=== PATIENT | female | born 1960 | race Caucasian/White ===

== ENCOUNTER → 2016-04-24 | Outpatient (CLI) | payer OTHER | END | disposition home or self-care (01) | LOC: LABWHC1 14:20 | PROVIDERS: ATTEND Surgery | DX: Z00.5 Encounter for examination of potential donor of organ and tissue (principal); Z52.4 Kidney donor | CPT/HCPCS: 86900; 86901 ==

== ENCOUNTER → 2016-09-02 | Outpatient (CLI) | payer OTHER ==
[2016-09-02 10:51] LABS: Basophils # (A) 0.1 k/uL (0-0.2); Basophils % (A) 1 %; CH 30.3; CHCM 33.1; Eosinophils # (A) 0.3 k/uL (0-0.7); Eosinophils % (A) 5 %; HCT 43.5 % (34.0-46.0); HDW 2.39; HGB 14.3 gm/dL (11.4-16.0); Luc # (Auto) 0.09; Luc % (Auto) 2; Lymphocytes # (A) 1.6 k/uL (1.0-4.8); Lymphocytes % (A) 27 %; MCH 30.3 pg (25.0-35.0); MCV 92.1 fL (80.0-100.0); Monocytes # (A) 0.3 k/uL (0-1.0); Monocytes % (A) 5 %; Neutrophils # (A) 3.7 k/uL (1.3-7.7); Neutrophils % (A) 61 %; RBC 4.73 m/uL (3.80-5.40); RDW 13.7 % (11.5-15.5); WBC 6.1 k/uL (3.8-10.6); WBC (Perox) 5.84
[2016-09-02 10:53] LABS: ALT 39 U/L (9-52); AST 27 U/L (14-36); Alkaline Phosphatase 88 U/L (38-126); Anion Gap 12 mmol/L; Bilirubin, Delta 0.3 mg/dL (0.0-0.2); Blood Urea Nitrogen 17 mg/dL (7-17); Calcium 9.9 mg/dL (8.4-10.2); Carbon Dioxide 27 mmol/L (22-30); Chloride 104 mmol/L (98-107); Cholesterol 207 mg/dL (<200); GGT 62 U/L (12-43); Glucose 91 mg/dL (74-99); HDL Cholesterol 46 mg/dL (40-60); LDH 455 U/L (313-618); Non-African American GFR(MDRD) >60 (>60 ml/min/1.73 sqM); Phosphorous 3.8 mg/dL (2.5-4.5); Potassium 4.5 mmol/L (3.5-5.1); Sodium 143 mmol/L (137-145); Total Bilirubin 0.6 mg/dL (0.2-1.3); Total Protein 7.8 g/dL (6.3-8.2); Triglycerides 197 mg/dL (<150)
[2016-09-02 10:56] LABS: INR 0.9 (<1.1); Partial Thromboplastin Time 23.2 sec (22.0-30.0); Prothrombin Time 9.5 sec (9.0-12.0)
[2016-09-02 11:03] LABS: Appearance,Urine Clear (Clear); Bilirubin,Urine Negative (Negative); Glucose,Urine (UA) Negative (Negative); Ketones,Urine Negative (Negative); Leukocyte Esterase,Urine Negative (Negative); Nitrite,Urine Negative (Negative); Protein,Urine Negative (Negative); Specific Gravity,Urine 1.002 (1.001-1.035); UA Billing (MACRO vs. MICRO) CHEM; Urobilinogen,Urine <2.0 mg/dL (<2.0)
[2016-09-02 11:23] LABS: Hepatitis B Surface Ag Index 0.07
[2016-09-02 11:28] LABS: Hepatitis B Core IgM Index 0.03
[2016-09-02 11:41] LABS: Hepatitis B Surface Antibody POSITIVE (Negative); Hepatitis C Virus IgG Ab Negative (Negative); Hepatitis C Virus IgG Index 0.05
[2016-09-02 14:34] LABS: Hemoglobin A1C 5.7 % (4.2-6.1)
[2016-09-02 15:09] LABS: Urine Creatinine 11.4 mg/dL
[2016-09-02 15:47] LABS: Treponemal Ab Non-Reactive (Non-Reactive)
[2016-09-03 04:34] LABS: EBV - EA (IgG) <5.0 U/mL (<9.0); EBV - EBNA (IgG) 5.8 U/mL (<18.0); EBV - VCA (IgG) >750.0 U/mL (<18.0); EBV - VCA IgM <10.0 U/mL (<36.0)
[2016-09-03 14:35] LABS: Hepatits C Virus RNA, Quant <12 IU/mL (<12); LOG HCV IU/mL <1.08 (<1.08)
[2016-09-05 14:01] LABS: West Nile Virus IgM Antibody 0.01 INDEX (<0.90)
== END | disposition home or self-care (01) ==
LOC: LABWHC1 08:41
PROVIDERS: ATTEND Surgery
DX: Z52.4 Kidney donor (principal)
CPT/HCPCS: 36415; 80053; 80061; 81003; 82043; 82248; 82570; 82575; 82977; 83036; 83615; 84100; 84156; 85025; 85610; 85730; 86480; 86644; 86663; 86664; 86665; 86704; 86705; 86706; 86780; 86788; 86789; 86803; 87086; 87340; 87390; 87522

== ENCOUNTER → 2016-09-03 | Outpatient (CLI) | payer OTHER ==
--- NOTE | 2016-09-03 16:04 | XR ---
EXAMINATION TYPE: XR chest 2V DATE OF EXAM: 09/03/2016 COMPARISON: None HISTORY: 55-year-old female screening for cardiovascular disease TECHNIQUE: Frontal and lateral views FINDINGS: The cardiomediastinal silhouette, aorta, and pulmonary vasculature are within normal limits. There is mild interstitial prominence which has a chronic appearance. Lungs and pleural spaces are otherwise clear. IMPRESSION: No acute cardiopulmonary process.
== END | disposition home or self-care (01) ==
LOC: RADXRMAIN 15:42
PROVIDERS: ATTEND Surgery
DX: Z13.6 Encounter for screening for cardiovascular disorders (principal)
CPT/HCPCS: 71020; 93005

== ENCOUNTER → 2017-02-03 | Outpatient (CLI) | payer BC ==
--- NOTE | 2017-02-03 09:06 | XR ---
EXAMINATION TYPE: XR Hip Complete RT DATE OF EXAM: 02/03/2017 COMPARISON: NONE HISTORY: Pain TECHNIQUE: 2 view right hip FINDINGS: Right hip is examined in AP and lateral projections Femoral head articulates with the acetabulum. Joint spaces preserved. No acute fractures are evident. Some degenerative change may be at the sacroiliac joint on the right. IMPRESSION: 1. No acute osseous abnormality.
--- NOTE | 2017-02-03 09:07 | XR ---
EXAMINATION TYPE: XR lumbosacral spine min 4V DATE OF EXAM: 02/03/2017 COMPARISON: NONE HISTORY: Right leg pain TECHNIQUE: Five-view lumbar spine FINDINGS: Lumbar spine is examined in 5 views. Disc height and vertebral body heights are preserved. Alignment is normal. Facets are unremarkable. There 5 lumbar-type vertebral bodies. The pedicles are intact. IMPRESSION: 1. Normal 5 view lumbar spine
--- NOTE | 2017-02-04 09:59 | MM ---
Reason for exam: screening (asymptomatic). Last mammogram was performed 3 years and 3 months ago. History: Family history of breast cancer in mother at age 51. Physical Findings: A clinical breast exam by your physician is recommended on an annual basis and results should be correlated with mammographic findings. MG Screening Mammo w CAD Bilateral CC and MLO view(s) were taken. Prior study comparison: April 11, 2015, mammogram, performed at [facility]. October 29, 2013, left breast MG work up mamm w CAD LT. October 21, 2013, bilateral MG screening mammo w CAD. The breast tissue is extremely dense which could obscure a lesion on mammography. Finding: There is a 7 mm obscured oval mass in the middle, central position of the left breast. Focal asymmetry 8mm, new, right posterior inferior position. ASSESSMENT: Incomplete: need additional imaging evaluation, BI-RAD 0 RECOMMENDATION: Special view mammogram of both breasts. If lesion persists on supplemental views, image directed ultrasound is recommended. [facility] will attempt to contact patient to return for supplemental views and ultrasound if indicated.
== END | disposition home or self-care (01) ==
LOC: RADMAMWWP 07:58
PROVIDERS: ATTEND Internal Medicine
DX: Z12.31 Encounter for screening mammogram for malignant neoplasm of breast (principal); M79.604 Pain in right leg
CPT/HCPCS: 72110; 73502; G0202

== ENCOUNTER → 2017-03-03 | Outpatient (CLI) | payer BC ==
--- NOTE | 2017-03-03 09:19 | MM ---
Reason for exam: additional evaluation requested from abnormal screening. Last mammogram was performed 1 month ago. History: Family history of breast cancer in mother at age 51. Physical Findings: Nurse did not find any significant physical abnormalities on exam. MG Work Up Mamm w CAD BILAT Spot compression MLO and ML view(s) were taken of the right breast. Spot compression CC and LM view(s) were taken of the left breast. Prior study comparison: February 03, 2017, bilateral MG screening mammo w CAD. April 11, 2015, mammogram, performed at [facility]. The breast tissue is heterogeneously dense. This may lower the sensitivity of mammography. The previously seen bilateral asymmetries appear as fibroglandular tissue on additional views. Compatible with overlap. These results were verbally communicated with the patient and result sheet given to the patient on 03/03/17. ASSESSMENT: Benign, BI-RAD 2 RECOMMENDATION: Return to routine screening mammogram schedule for both breasts.
== END | disposition home or self-care (01) ==
LOC: RADMAMWWP 07:51
PROVIDERS: ATTEND Internal Medicine
DX: R92.8 Other abnormal and inconclusive findings on diagnostic imaging of breast (principal)
CPT/HCPCS: 77066

== ENCOUNTER → 2017-04-23 | Outpatient (CLI) | payer SELFPAY | END | disposition home or self-care (01) | LOC: LABWHC1 15:00 | PROVIDERS: ATTEND Pathology Anatomic Pathology & Clinical Pathology | DX: Z53.9 Procedure and treatment not carried out, unspecified reason (principal) | CPT/HCPCS: 36415 ==

== ENCOUNTER → 2017-07-22 | Outpatient (CLI) | payer SELFPAY | END | disposition home or self-care (01) | LOC: LABWHC1 13:19 | PROVIDERS: ATTEND Internal Medicine Nephrology | DX: Z52.4 Kidney donor (principal) | CPT/HCPCS: 36415 ==

== ENCOUNTER → 2017-08-11 | Outpatient (CLI) | payer SELFPAY ==
[2017-08-11 09:43] LABS: Basophils # (A) 0.1 k/uL (0-0.2); Basophils % (A) 1 %; Eosinophils # (A) 0.2 k/uL (0-0.7); Eosinophils % (A) 5 %; HCT 43.2 % (34.0-46.0); HGB 13.9 gm/dL (11.4-16.0); Lymphocytes # (A) 1.6 k/uL (1.0-4.8); Lymphocytes % (A) 30 %; MCH 29.2 pg (25.0-35.0); MCHC 32.1 g/dL (31.0-37.0); MCV 91.1 fL (80.0-100.0); Mean Platelet Volume 7.5; Monocytes # (A) 0.3 k/uL (0-1.0); Monocytes % (A) 5 %; Neutrophils % (A) 57 %; Platelet Count 179 k/uL (150-450); RBC 4.74 m/uL (3.80-5.40); RDW 13.8 % (11.5-15.5); WBC 5.2 k/uL (3.8-10.6)
[2017-08-11 09:56] LABS: ALT 51 U/L (9-52); AST 30 U/L (14-36); Albumin 4.5 g/dL (3.5-5.0); Alkaline Phosphatase 73 U/L (38-126); Anion Gap 12 mmol/L; Blood Urea Nitrogen 17 mg/dL (7-17); Calcium 9.4 mg/dL (8.4-10.2); Carbon Dioxide 26 mmol/L (22-30); Chloride 104 mmol/L (98-107); Glucose 94 mg/dL (74-99); Potassium 4.3 mmol/L (3.5-5.1); Sodium 142 mmol/L (137-145); Total Bilirubin 0.6 mg/dL (0.2-1.3); Total Protein 7.2 g/dL (6.3-8.2)
[2017-08-11 10:12] LABS: HCG,Quantitative Serum 4.2 mIU/mL
[2017-08-11 18:33] LABS: Hemoglobin A1C 5.9 % (4.0-6.0)
[2017-08-14 12:48] LABS: West Nile Virus IgM Antibody 0.01 INDEX (<0.90)
== END | disposition home or self-care (01) ==
LOC: LABWHC1 09:14
PROVIDERS: ATTEND Surgery
DX: Z52.4 Kidney donor (principal)
CPT/HCPCS: 36415; 80053; 83036; 84702; 85025; 86788; 86789

== ENCOUNTER → 2018-02-14 | Outpatient (CLI) | payer BC ==
[2018-02-14 09:51] LABS: HCT 45.2 % (34.0-46.0); HGB 14.8 gm/dL (11.4-16.0); MCH 29.5 pg (25.0-35.0); MCHC 32.7 g/dL (31.0-37.0); MCV 90.3 fL (80.0-100.0); Mean Platelet Volume 7.6; Platelet Count 178 k/uL (150-450); RDW 13.9 % (11.5-15.5); WBC 5.6 k/uL (3.8-10.6)
[2018-02-14 16:27] LABS: LDL Cholesterol,Calculated 121.6 mg/dL (0.0-131.0); VLDL Calculation 19.4 mg/dL (5.00-40.00)
== END | disposition home or self-care (01) ==
LOC: LABWHC1 09:03
PROVIDERS: ATTEND Internal Medicine
DX: E78.49 Other hyperlipidemia (principal); E87.8 Other disorders of electrolyte and fluid balance, not elsewhere classified; R53.83 Other fatigue
CPT/HCPCS: 36415; 80061; 84443; 84460; 85027

== ENCOUNTER → 2019-02-06 | Outpatient (CLI) | payer BC ==
[2019-02-06 17:36] LABS: African American GFR (CKD) 110.7 (60.0-200.0); Anion Gap 7.4 mmol/L (4.00-12.00); BUN/Creat Ratio 32.86 Ratio (12.00-20.00); Calcium 9.5 mg/dL (8.7-10.3); Carbon Dioxide 27.6 mmol/L (21.6-31.8); Chol/HDL Ratio 3.41; LDL Cholesterol,Calculated 94.8 mg/dL (0.0-131.0); Non-African American GFR(CKD) 95.5 (60.0-200.0); Potassium 4.4 mmol/L (3.5-5.5); VLDL Calculation 16.2 mg/dL (5.00-40.00)
== END | disposition home or self-care (01) ==
LOC: LABWHC1 10:48
PROVIDERS: ATTEND Nurse Practitioner Adult Health
DX: I47.1 Supraventricular tachycardia (principal); E78.5 Hyperlipidemia, unspecified
CPT/HCPCS: 36415; 80048; 80061; 83735; 84443; 84481

== ENCOUNTER → 2019-09-09 | Outpatient (CLI) | payer SELFPAY ==
--- NOTE | 2019-09-09 13:08 | XR ---
EXAMINATION TYPE: XR chest 2V DATE OF EXAM: 09/09/2019 COMPARISON: Chest 09/03/2016 HISTORY: Z00.50 TECHNIQUE: Frontal and lateral views of the chest are obtained. FINDINGS: There is no focal air space opacity, pleural effusion, or pneumothorax seen. The cardiac silhouette size is within normal limits. The osseous structures are intact. IMPRESSION: No acute cardiopulmonary process.
== END | disposition home or self-care (01) ==
LOC: LABWHC1 10:46
PROVIDERS: ATTEND Surgery
DX: Z52.4 Kidney donor (principal); Z13.6 Encounter for screening for cardiovascular disorders
CPT/HCPCS: 71046

== ENCOUNTER → 2019-09-09 | Outpatient (CLI) | payer BC, OTHER ==
[2019-09-09 12:20] LABS: Basophils % (A) 1 %; Eosinophils # (A) 0.2 k/uL (0-0.7); Eosinophils % (A) 4 %; HCT 42.7 % (34.0-46.0); HGB 14.1 gm/dL (11.4-16.0); Lymphocytes # (A) 1.5 k/uL (1.0-4.8); Lymphocytes % (A) 28 %; MCH 30.1 pg (25.0-35.0); MCV 91.5 fL (80.0-100.0); Mean Platelet Volume 8.6; Monocytes # (A) 0.3 k/uL (0-1.0); Monocytes % (A) 5 %; Neutrophils # (A) 3.1 k/uL (1.3-7.7); Neutrophils % (A) 60 %; Platelet Count 177 k/uL (150-450); RBC 4.67 m/uL (3.80-5.40); RDW 13.4 % (11.5-15.5); WBC 5.2 k/uL (3.8-10.6)
[2019-09-09 12:22] LABS: Appearance,Urine Clear (Clear); Bilirubin,Urine Negative (Negative); Blood,Urine Negative (Negative); Color,Urine Yellow; Glucose,Urine (UA) Negative (Negative); Ketones,Urine Negative (Negative); Leukocyte Esterase,Urine Negative (Negative); Nitrite,Urine Negative (Negative); Protein,Urine Negative (Negative); Specific Gravity,Urine 1.015 (1.001-1.035); Urobilinogen,Urine <2.0 mg/dL (<2.0)
[2019-09-09 20:19] LABS: African American GFR (CKD) 110.7 (60.0-200.0); Albumin 4.8 g/dL (3.80-4.90); Albumin/Globulin Ratio 1.78 (1.60-3.17); Anion Gap 9.8 mmol/L (4.00-12.00); BUN/Creat Ratio 24.29 Ratio (12.00-20.00); Calcium 9.8 mg/dL (8.7-10.3); Carbon Dioxide 26.2 mmol/L (21.6-31.8); Chol/HDL Ratio 3.78; Globulin 2.7 g/dL (1.6-3.3); LDL Cholesterol,Calculated 105.2 mg/dL (0.0-131.0); Non-African American GFR(CKD) 95.5 (60.0-200.0); Phosphorus 3.8 mg/dL (2.4-5.1); Potassium 4.3 mmol/L (3.5-5.5); Total Bilirubin 0.7 mg/dL (0.3-1.2); Total Protein 7.5 g/dL (6.2-8.2); VLDL Calculation 22.8 mg/dL (5.00-40.00)
[2019-09-09 20:27] LABS: HCG,Quantitative Serum 2.7 mIU/mL
[2019-09-09 20:58] LABS: Hepatitis B Core IgM Non-Reactive (Non-Reactive); Hepatitis B Surface AB- Quant 815.1 mIU/mL; Hepatitis B Surface Antibody Reactive (Non-Reactive); Hepatitis B Surface Antigen Non-Reactive (Non-Reactive); Hepatitis C IgG Antibody Non-Reactive (Non-Reactive)
[2019-09-09 21:25] LABS: Creatinine,Urine Random 84.6 mg/dL
[2019-09-09 21:37] LABS: EBV-EA (IgG) <0.2 AI; EBV-EBNA(IgG) >8.0 AI; EBV-VCA (IgG) >8.0 AI; EBV-VCA (IgM) <0.2 AI
[2019-09-09 21:47] LABS: Total Protein,Urine Random 8.1 mg/dL (0.0-13.5)
[2019-09-09 22:12] LABS: HIV 2 AB Non-Reactive (Non-Reactive); HIV AB P24 Non-Reactive (Non-Reactive); HIV P24 AG Non-Reactive (Non-Reactive)
[2019-09-09 22:45] LABS: Hemoglobin A1C 5.9 % (4.0-6.0)
[2019-09-10 01:57] LABS: Urine Creatinine 78.4 mg/dL
[2019-09-10 03:23] LABS: INR 0.93 (0.90-1.11); Partial Thromboplastin Time 28.6 sec (24.7-29.9)
== END | disposition home or self-care (01) ==
LOC: LABWHC1 10:40
PROVIDERS: ATTEND Nurse Practitioner Family
DX: E03.9 Hypothyroidism, unspecified (principal); E78.49 Other hyperlipidemia; I10 Essential (primary) hypertension; R53.83 Other fatigue
CPT/HCPCS: 36415; 80053; 80061; 81003; 82043; 82306; 82570; 82977; 83036; 83615; 84100; 84156; 84443; 84702; 85025; 85610; 85730; 86480; 86644; 86663; 86664; 86665; 86704; 86705; 86706; 86780; 86789; 86803; 87086; 87340; 87390; 87522; 93005

== ENCOUNTER → 2019-09-21 | Outpatient (CLI) | payer OTHER ==
[2019-09-21 10:27] LABS: Creatinine 24 Hour,Urine 925.6 mg/24hr (800.0-1800.0)
[2019-09-21 16:40] LABS: Total Volume 24 Hour,Urine 1025 mL
[2019-09-21 19:11] LABS: Total Protein 24 Hour,Urine 71.8 mg/24Hr
== END | disposition home or self-care (01) ==
LOC: LABWHC1 09-20 08:04
PROVIDERS: ATTEND Surgery
DX: Z52.4 Kidney donor (principal)
CPT/HCPCS: 36415; 81050; 82575; 84156

== ENCOUNTER → 2019-10-19 | Outpatient (CLI) | payer BC ==
--- NOTE | 2019-10-19 12:02 | BD ---
EXAMINATION TYPE: Axial Bone Density DATE OF EXAM: 10/19/2019 COMPARISON: NONE CLINICAL HISTORY: Height: 59.2 IN Weight: 141 LBS RISK FACTORS HISTORY OF: Active: YES Diet low in dairy products/other sources of calcium: YES Postmenopausal woman: AGE 53 MEDICATIONS: Additional Medications: MULTI VIT, CALCIUM, ALLERGY MEDS, CHOLESTEROL MEDS EXAM MEASUREMENTS: Bone mineral densitometry was performed using the [employer] ([employer] System. Bone mineral density as measured about the Lumbar spine is: ----- L1-L4(G/cm2): 0.993 T Score Values are as follows: ----- L2: -1.9 ----- L3: -1.9 ----- L4: -1.6 ----- L1-L4: -1.6 Bone mineral density BASELINE Bone mineral density about the R hip (g/cm2): 0.882 Bone mineral density about the L hip (g/cm2): 0.852 T Score values are as follows: -----R Neck: -1.1 -----L Neck: -1.3 -----R Total: -0.8 -----L Total: -0.7 Bone mineral density BASELINE IMPRESSION: Osteopenia NOTE: T-SCORE=SD OF THE YOUNG ADULT MEAN.
== END | disposition home or self-care (01) ==
LOC: RADBDWWP 07:34
PROVIDERS: ATTEND Family Medicine
DX: M89.9 Disorder of bone, unspecified (principal)
CPT/HCPCS: 77080

== ENCOUNTER → 2019-10-19 | Outpatient (CLI) | payer BC ==
--- NOTE | 2019-10-20 09:03 | MM ---
Reason for exam: screening (asymptomatic). Last mammogram was performed 1 year and 5 months ago. History: Patient is postmenopausal. Family history of breast cancer in mother at age 51. Physical Findings: A clinical breast exam by your physician is recommended on an annual basis and results should be correlated with mammographic findings. MG 3D Screening Mammo W/Cad Bilateral CC and MLO view(s) were taken. Prior study comparison: May 18, 2018, bilateral MG 3d screening mammo w/cad. March 03, 2017, bilateral MG work up mamm w CAD BILAT. The breast tissue is heterogeneously dense. This may lower the sensitivity of mammography. There is no discrete abnormality. No significant changes when compared with prior studies. ASSESSMENT: Negative, BI-RAD 1 RECOMMENDATION: Routine screening mammogram of both breasts in 1 year.
== END | disposition home or self-care (01) ==
LOC: RADMAMWWP 07:31
PROVIDERS: ATTEND Obstetrics & Gynecology
DX: Z12.31 Encounter for screening mammogram for malignant neoplasm of breast (principal); Z80.3 Family history of malignant neoplasm of breast
CPT/HCPCS: 77063; 77067

== ENCOUNTER → 2020-12-11 | Outpatient (CLI) | payer MEDICAID ==
--- NOTE | 2020-12-12 13:32 | MM ---
Reason for exam: screening (asymptomatic). Last mammogram was performed 1 year and 2 months ago. History: Patient is postmenopausal. Family history of breast cancer in mother at age 51. Took hormonal contraceptives for 8 years. Physical Findings: A clinical breast exam by your physician is recommended on an annual basis and results should be correlated with mammographic findings. MG Screening Mammo w CAD Bilateral CC and MLO view(s) were taken. Prior study comparison: October 19, 2019, bilateral MG 3d screening mammo w/cad. May 18, 2018, bilateral MG 3d screening mammo w/cad. February 03, 2017, bilateral MG screening mammo w CAD. The breast tissue is heterogeneously dense. This may lower the sensitivity of mammography. No significant changes when compared with prior studies. ASSESSMENT: Benign, BI-RAD 2 RECOMMENDATION: Routine screening mammogram of both breasts in 1 year.
== END | disposition home or self-care (01) ==
LOC: RADMAMWWP 07:20
PROVIDERS: ATTEND Obstetrics & Gynecology
DX: Z12.31 Encounter for screening mammogram for malignant neoplasm of breast (principal); Z80.3 Family history of malignant neoplasm of breast
CPT/HCPCS: 77067

== ENCOUNTER → 2021-03-12 | Outpatient (CLI) | payer MEDICAID ==
[2021-03-12 14:25] LABS: ALT 33 U/L (8-44); AST 22 U/L (13-35); African American GFR (CKD) 80.5 (60.0-200.0); Albumin 4.7 g/dL (3.8-4.9); Albumin/Globulin Ratio 1.81 (1.60-3.17); Alkaline Phosphatase 94 U/L (41-126); BUN/Creat Ratio 22.67 Ratio (12.00-20.00); Blood Urea Nitrogen 20.4 mg/dL (9.0-27.0); Calcium 9.7 mg/dL (8.7-10.3); Carbon Dioxide 25.3 mmol/L (20.0-27.5); Chloride 105 mmol/L (96-109); Chol/HDL Ratio 3.97 Ratio; Globulin 2.6 g/dL (1.6-3.3); Glucose 102 mg/dL (70-110); LDL Cholesterol,Calculated 122.1 mg/dL (0.0-131.0); Non-African American GFR(CKD) 69.5 (60.0-200.0); Potassium 4.7 mmol/L (3.5-5.5); Sodium 142 mmol/L (135-145); Total Protein 7.3 g/dL (6.2-8.2)
== END | disposition home or self-care (01) ==
LOC: LABWHC1 09:04
PROVIDERS: ATTEND Internal Medicine Clinical Cardiac Electrophysiology
DX: I47.1 Supraventricular tachycardia (principal); E78.5 Hyperlipidemia, unspecified
CPT/HCPCS: 36415; 80053; 80061

== ENCOUNTER → 2021-09-17 | Outpatient (CLI) | payer MEDICAID ==
[2021-09-17 12:25] LABS: Appearance,Urine Clear (Clear); Bilirubin,Urine Negative (Negative); Blood,Urine Negative (Negative); Color,Urine Yellow; Glucose,Urine (UA) Negative (Negative); Ketones,Urine Negative (Negative); Leukocyte Esterase,Urine Negative (Negative); Nitrite,Urine Negative (Negative); PH, Urine 7.5 (5.0-8.0); Protein,Urine Negative (Negative); Specific Gravity,Urine 1.023 (1.001-1.035); Urobilinogen,Urine <2.0 mg/dL (<2.0)
[2021-09-17 14:36] LABS: Basophils # (A) 0.06 X 10*3/uL (0.00-0.10); Basophils % (A) 0.7 %; Eosinophils # (A) 0.16 X 10*3/uL (0.04-0.35); Eosinophils % (A) 1.9 %; HGB 13.8 g/dL (12.0-15.0); Immature Grans, Automated 0.2 %; Lymphocytes # (A) 1.19 X 10*3/uL (0.90-5.00); Lymphocytes % (A) 14.3 %; MCH 28.4 pg (27.0-32.0); MCHC 30.7 g/dL (32.0-37.0); MCV 92.6 fL (80.0-97.0); Mean Platelet Volume 11.6 fL (9.5-12.2); Monocytes # (A) 0.42 X 10*3/uL (0.20-1.00); NRBC Per 100 WBC 0 /100 WBCS (0.0-0.0); Neutrophils # (A) 6.48 X 10*3/uL (1.80-7.70); Neutrophils % (A) 77.9 %; Platelet Count 179 X 10*3/uL (140-440); RBC 4.86 X 10*6/uL (4.10-5.20); RDW 13.4 % (11.5-14.5); WBC 8.33 X 10*3/uL (4.50-10.00)
[2021-09-17 14:55] LABS: ALT 25 U/L (8-44); AST 24 U/L (13-35); African American GFR (CKD) 68.4 (60.0-200.0); Albumin 4.8 g/dL (3.8-4.9); Albumin/Globulin Ratio 1.51 (1.60-3.17); Alkaline Phosphatase 82 U/L (41-126); BUN/Creat Ratio 24.27 Ratio (12.00-20.00); Calcium 10.3 mg/dL (8.7-10.3); Carbon Dioxide 25.4 mmol/L (20.0-27.5); Chloride 102 mmol/L (96-109); Chol/HDL Ratio 3.98 Ratio; Globulin 3.2 g/dL (1.6-3.3); Glucose 106 mg/dL (70-110); LDL Cholesterol,Calculated 113.1 mg/dL (0.0-131.0); Potassium 5.2 mmol/L (3.5-5.5); Sodium 139 mmol/L (135-145)
== END | disposition home or self-care (01) ==
LOC: LABWHC1 09:36
PROVIDERS: ATTEND Internal Medicine
DX: E78.5 Hyperlipidemia, unspecified (principal)
CPT/HCPCS: 36415; 80053; 80061; 81003; 84443; 85025

== ENCOUNTER → 2022-01-14 | Outpatient (CLI) | payer MEDICAID ==
[2022-01-14 09:39] LABS: Appearance,Urine Clear (Clear); Bilirubin,Urine Negative (Negative); Blood,Urine Negative (Negative); Color,Urine Colorless; Glucose,Urine (UA) Negative (Negative); Ketones,Urine Negative (Negative); Leukocyte Esterase,Urine Negative (Negative); Nitrite,Urine Negative (Negative); Protein,Urine Negative (Negative); Specific Gravity,Urine 1.004 (1.001-1.035); Urobilinogen,Urine <2.0 mg/dL (<2.0)
[2022-01-14 16:17] LABS: African American GFR (CKD) 77.8 (60.0-200.0); Chol/HDL Ratio 3.34 Ratio; LDL Cholesterol,Calculated 87.2 mg/dL (0.0-131.0); Non-African American GFR(CKD) 67.1 (60.0-200.0)
== END | disposition home or self-care (01) ==
LOC: LABWHC1 08:31
PROVIDERS: ATTEND Internal Medicine Interventional Cardiology
DX: E78.5 Hyperlipidemia, unspecified (principal)
CPT/HCPCS: 36415; 80061; 81003; 82565

== ENCOUNTER → 2022-01-14 | Outpatient (CLI) | payer MEDICAID | END | disposition home or self-care (01) | LOC: LABWHC1 08:35 | PROVIDERS: ATTEND Surgery | DX: Z53.9 Procedure and treatment not carried out, unspecified reason (principal) ==

== ENCOUNTER 2022-02-15 14:33 | Emergency (ER) | payer MEDICAID ==
--- NOTE | 2022-02-15 15:09 | XR ---
Right knee. HISTORY: Swelling. COMPARISON: None. TECHNIQUE: 3 views right knee were obtained. FINDINGS: There is no fracture or focal intraosseous abnormality. There is moderate narrowing of the medial com partment of the knee indicating moderate osteoarthritis. There is minimal narrowing of the patellofemoral compartment and lateral compartment. There is no abnormal soft tissue calcification. There is a large joint effusion. IMPRESSION: 1. Large joint effusion. 2. Osteoarthritis of the knee greatest and moderate in the medial compartment
[2022-02-15] MEDS ORDERED: LIDOCAINE-PRILOCAINE 2.5-2.5% CREAM 5 GM TUBE TOPICAL STA (15:51)
[2022-02-15] MEDS ORDERED: LIDOCAINE 1% INJ 10MG/ML (30 ML VIAL-PF) SQ ONE (15:51)
--- NOTE | 2022-02-15 16:25 | ED ---
Lower Extremity Injury HPI - General Source: patient, RN notes reviewed, old records reviewed Mode of arrival: ambulatory Limitations: no limitations - History of Present Illness MD Complaint: knee injury -: days(s) (2) Injury: Knee: Right (swelling) Place: home Severity scale (1-10): 6 Improves With: cold therapy, immobilization Worsens With: movement, palpation Context: other (unknown) Associated Symptoms: snap/pop sensation, swelling, able to partially bear weight Treatments Prior to Arrival: cold therapy, NSAIDS (200mg) <Ulises Alvarado - Last Filed: 02/15/22 16:59> <Michael Whitehead - Last Filed: 02/15/22 18:11> - General Chief Complaint: Extremity Injury, Lower Stated Complaint: right knee pain/swelling Time Seen by Provider: 02/15/22 15:12 - History of Present Illness Initial Comments: This is a well-appearing 61-year-old female presents to emergency room with right knee pain and swelling. Patient states that she felt a sharp pain in her knee while sitting last night. Today she felt a pop and had instant swelling. She put ice on it and took 200 mg of Motrin with some relief. Denies any fevers. Denies any trauma. No medical history. (Ulises Alvarado) - Related Data Home Medications Medication Instructions Recorded Confirmed Atorvastatin [Lipitor] 20 mg PO HS 01/24/17 01/28/17 Loratadine [Claritin] 10 mg PO QAM 01/24/17 01/28/17 Allergies Allergy/AdvReac Type Severity Reaction Status Date / Time ciprofloxacin [From Cipro] Allergy sunburn Verified 02/15/22 14:40 like rash erythromycin base Allergy Abdominal Verified 02/15/22 14:40 Pain metoclopramide Allergy Rash/Hives Verified 02/15/22 14:40 Penicillins Allergy Rash/Hives Verified 02/15/22 14:40 polyethylene glycol Allergy Rash/Hives Verified 02/15/22 14:41 sulfamethoxazole Allergy Swelling, Verified 02/15/22 14:40 [From Bactrim] itching trimethoprim [From Bactrim] Allergy Swelling, Verified 02/15/22 14:40 itching raw tomato Allergy Rash/Hives Uncoded 02/15/22 14:40 Review of Systems ROS Other: All systems not noted in ROS Statement are negative. <Ulises Alvarado - Last Filed: 02/15/22 16:59> ROS Other: All systems not noted in ROS Statement are negative. <VenturaMihcael - Last Filed: 02/15/22 18:11> ROS Statement: Those systems with pertinent positive or pertinent negative responses have been documented in the HPI. Past Medical History Past Medical History: No Reported History History of Any Multi-Drug Resistant Organisms: None Reported Past Surgical History: Tubal Ligation Additional Past Surgical History / Comment(s): ENT, Kidney Past Psychological History: No Psychological Hx Reported Smoking Status: Never smoker Past Alcohol Use History: None Reported Past Drug Use History: None Reported <Ulises Alvarado - Last Filed: 02/15/22 16:59> General Exam Limitations: no limitations General appearance: alert, in no apparent distress Eye exam: Absent: scleral icterus, conjunctival injection, periorbital swelling Respiratory exam: Absent: respiratory distress, accessory muscle use Cardiovascular Exam: Present: regular rate Right Upper Leg exam: Present: full ROM. Absent: tenderness Knee exam: Present: tenderness, swelling, effusion, full knee extension. Absent: ecchymosis, erythema Lower Leg exam: Present: full ROM. Absent: swelling Ankle exam: Present: full ROM. Absent: tenderness Foot/Toe exam: Present: full ROM. Absent: tenderness Neurovascular tendon exam: Present: no vascular compromise. Absent: abnormal cap refill, extremity cold to touch, pallor, foot drop Neurological exam: Present: alert, oriented X3 Psychiatric exam: Present: normal affect, normal mood Skin exam: Present: warm, dry, normal color. Absent: cyanosis, diaphoretic, petechiae, pallor <Ulises Alvarado - Last Filed: 02/15/22 16:59> Course Vital Signs 02/15/22 02/15/22 14:37 17:39 Temperature 98.2 F 98.1 F Pulse Rate 94 92 Respiratory 20 18 Rate Blood Pressure 139/81 145/86 O2 Sat by Pulse 99 98 Oximetry Procedures - Incision & Drainage Consent Obtained: verbal consent Site: lower extremity Anesthetic Used: lidocaine 1% Amount (mLs): 5 I&D Cleaning Method: Chloroprep Sterile Field Used?: No Needle Aspiration Performed?: Yes (18-gauge needle used after the field was cleaned with ChloraPrep and 1% Xyl) I&D Drainage Obtained: Blood Culture Obtained?: No Patient Tolerated Procedure: well <Michael Whitehead - Last Filed: 02/15/22 18:11> Medical Decision Making <Ulises Alvarado - Last Filed: 02/15/22 16:59> - Medical Decision Making Patient presents with an effusion of the right knee. Offered pain medication and declined. X-ray performed showing large joint effusion with osteoarthritis of the knee, greatest and moderate in the medial compartment.. EMLA cream was applied and lidocaine injected. Dr. Whitehead at bedside drained 45 mL of blood from the joint. Jim wrap was applied. Directed to follow-up with orthopedics and Tylenol as needed for pain, ice, rest and elevate (Ulises Alvarado) Disposition Is patient prescribed a controlled substance at d/c from ED?: No Time of Disposition: 17:04 <Ulises Alvarado - Last Filed: 02/15/22 16:59> <Michael Whitehead - Last Filed: 02/15/22 18:11> Clinical Impression: Knee effusion, right Disposition: HOME SELF-CARE Condition: Good Instructions (If sedation given, give patient instructions): Swollen Knee Joint (ED), Knee Pain (ED) Additional Instructions: Rest, ice, elevate and wear Jim wrap for compression. Tylenol as needed for pain or discomfort. Follow-up with orthopedics next week. Return to the emergency room with any new or concerning symptoms including increased pain, swelling, redness or drainage. Referrals: Jagdish Worthington MD [Primary Care Provider] - 1-2 days Yamila Irving DO [Doctor of Osteopathic Medicine] - 1-2 days
[2022-02-15 17:41] VITALS: BP 145/86; PULSE 92; RESP 18; TEMP 98.1
== END 2022-02-15 17:40 | disposition home or self-care (01) ==
LOC: EC 14:33
DX: M25.461 Effusion, right knee (principal); Z88.1 Allergy status to other antibiotic agents; Z88.0 Allergy status to penicillin; Z88.2 Allergy status to sulfonamides; Z91.018 Allergy to other foods; Z88.8 Allergy status to other drugs, medicaments and biological substances
CPT/HCPCS: 73562; 99283; 10060; J2001

== ENCOUNTER → 2022-02-23 | Outpatient (CLI) | payer MEDICAID ==
--- NOTE | 2022-02-24 02:55 | MR ---
EXAMINATION TYPE: MR knee RT wo con DATE OF EXAM: 02/23/2022 COMPARISON: None HISTORY: Pain R knee Multiplanar multiecho imaging of the knee performed with no contrast. There is a moderately large knee joint effusion. The anterior and posterior cruciate ligaments are in tact. There is some horizontal increased signal in the posterior horn medial meniscus extending to th e inferior surface. The lateral meniscus is intact. The collateral ligaments are intact. There is hyp ertrophic spurring of the femoral and tibial condyles. No evidence of a fracture. No focal bone destruction. IMPRESSION: Large joint effusion. Horizontal tear posterior horn of the medial meniscus on the inferior surface. No evidence of ligamentous tear. Subcutaneous edema around the knee. Hypertrophic osteoarthritis in the medial joint space.
== END | disposition home or self-care (01) ==
LOC: RADMRIMAIN 11:53
PROVIDERS: ATTEND Orthopaedic Surgery
DX: M17.11 Unilateral primary osteoarthritis, right knee (principal); M23.221 Derangement of posterior horn of medial meniscus due to old tear or injury, right knee; M25.061 Hemarthrosis, right knee; M25.461 Effusion, right knee

== ENCOUNTER → 2022-10-17 | Outpatient (CLI) | payer MEDICAID ==
[2022-10-17 15:36] LABS: ALT 27 U/L (8-44); AST 25 U/L (13-35); Albumin 5.1 d/dL (3.8-4.9); Albumin/Globulin Ratio 1.89 Ratio (1.60-3.17); Alkaline Phosphatase 72 U/L (41-126); Blood Urea Nitrogen 18.9 mg/dL (9.0-27.0); Calcium 10.2 mg/dL (8.7-10.3); Carbon Dioxide 27.5 mmol/L (21.6-31.8); Chloride 103 mmol/L (96-109); Chol/HDL Ratio 4.87 Ratio; Globulin 2.7 d/dL (1.6-3.3); Glucose 94 mg/dL (70-110); LDL Cholesterol,Calculated 151.2 mg/dL (0.0-131.0); Potassium 4.7 mmol/L (3.5-5.5); Sodium 141 mmol/L (135-145); Total Bilirubin 0.4 mg/dL (0.3-1.2); Total Protein 7.8 d/dL (6.2-8.2)
[2022-10-17 17:56] LABS: Basophils # (A) 0.05 X 10*3/uL (0.00-0.10); Eosinophils % (A) 4.1 %; HCT 46.2 % (37.2-46.3); HGB 14.6 d/dL (12.0-15.0); Lymphocytes # (A) 1.55 X 10*3/uL (0.90-5.00); MCH 29.6 pg (27.0-32.0); MCHC 31.6 d/dL (32.0-37.0); MCV 93.7 FL (80.0-97.0); Mean Platelet Volume 11.9 FL (9.5-12.2); Monocytes # (A) 0.37 X 10*3/uL (0.20-1.00); Monocytes % (A) 7.6 %; NRBC Per 100 WBC 0 X 10*3/uL (0.00-0.01); Neutrophils # (A) 2.65 X 10*3/uL (1.80-7.70); Neutrophils % (A) 54.9 %; Platelet Count 171 X 10*3/uL (140-440); RBC 4.93 X 10*6/uL (4.10-5.20); RDW 13.8 % (11.5-14.5); WBC 4.84 X 10*3/uL (4.50-10.00)
== END | disposition home or self-care (01) ==
LOC: LABWHC1 09:40
PROVIDERS: ATTEND Internal Medicine
DX: Z00.00 Encounter for general adult medical examination without abnormal findings (principal); Z11.59 Encounter for screening for other viral diseases
CPT/HCPCS: 36415; 80053; 80061; 84443; 85025; 86803

== ENCOUNTER → 2023-07-29 | Outpatient (CLI) | payer OTHER ==
--- NOTE | 2023-07-29 20:35 | BD ---
EXAMINATION TYPE: Axial Bone Density DATE OF EXAM: 07/29/2023 CLINICAL HISTORY: 62 years old Female. ICD-10 CODE: OSTEO SCREENING [id number] Height: 59 Weight: 143.4 FRAX RISK QUESTIONS: Alcohol (3 or more units per day): no Family History (Parent hip fracture): no Glucocorticoids (More than 3mos): no (Ex: prednisone, prednisolone, methylprednisolone, dexamethasone, and hydrocortisone). History of Fracture in Adulthood: no Secondary Osteoporosis: 1. Type 1 Diabetes: no 2. Hyperthyroidism: no 3. Menopause before 45: no 4. Malnutrition: no 5. Chronic liver disease: no Rheumatoid Arthritis: no Current Tobacco Use: no RISK FACTORS HISTORY OF: Surgery to Spine/Hip(right/left)/Wrist (right/left): no EXAM MEASUREMENTS: Bone mineral densitometry was performed using the [employer] System. Bone mineral density as measured about the Lumbar spine is: ----- L1-L4(G/cm2): 1.030 T Score Values are as follows: ----- L1: -0.9 ----- L2: -1.4 ----- L3: -1.5 ----- L4: -1.3 ----- L1-L4: -1.3 Z Score Values are as follows: ----- L1: 0.5 ----- L2: 0.0 ----- L3: -0.1 ----- L4: 0.1 ----- L1-L4: 0.1 Bone mineral density has: INCREASED 3.7 % since study of: 10.19.2019 Bone mineral density about the R hip (g/cm2): 0.873 Bone mineral density about the L hip (g/cm2): 0.850 T Score values are as follows: -----R Neck: -1.3 -----L Neck: -1.6 -----R Total: -1.1 -----L Total: -1.3 Z Score values are as follows: -----R Neck: 0.1 -----L Neck: -0.2 -----R Total: -0.0 -----L Total: -0.2 Bone mineral density has: Decreased -4.3 % since study of: 10.19.2019 FRAX%s: The graph provided illustrates a 8.6% chance for a major osteoporotic fx and a 0.8% chance fo r the hips probability for fx in 10 years time. IMPRESSION: Osteopenia (T Score between -2.5 and -1). There is slightly increased risk of fracture and the patient may be considered for treatment. Re-Screen 2-5 years. NOTE: T-SCORE=SD OF THE YOUNG ADULT MEAN.
--- NOTE | 2023-07-30 11:23 | MM ---
Reason for Exam: Screening (asymptomatic). Last mammogram was performed 1 year(s) and 4 month(s) ago. Patient History: Menarche at age 13. First Full-Term at age 28. Postmenopausal. Patient used Hormonal Contraceptives for 8 years. Mother had breast cancer, age 51. Risk Values: Terri 5 year model risk: 3.0%. NCI Lifetime model risk: 13.2%. Prior Study Comparison: 10/19/2019 Bilateral Screening Mammogram, [facility]. 12/11/2020 Bilateral Screening Mammogram, [facility]. 04/22/2022 Bilateral MG screening mammo w CAD, [facility]. Tissue Density: The breasts are heterogeneously dense, which may obscure small masses. Findings: Analyzed By CAD. Right breast: There is no suspicious group of microcalcifications or new suspicious mass. Left breast: There is no suspicious group of microcalcifications or new suspicious mass. Overall Assessment: Negative, BI-RAD 1 Management: Screening Mammogram of both breasts in [address] [facility] will attempt to contact patient to return for supplemental views and ultrasound if indicated. Patient should continue monthly self-breast exams. A clinical breast exam by your physician is recommended on an annual basis. This exam should not preclude additional follow-up of suspicious palpable abnormalities. Note on Terri scores and lifetime risk: 1. A Terri score greater than 3% is considered moderate risk. If this is the case, consider specialist referral to assess eligibility for a risk reducing agent. 2. If overall lifetime risk for the development of breast cancer is 20% or higher, the patient may qualify for future screening with alternating mammogram and breast MRI. Electronically signed and approved by: Michael Stallworth DO
== END | disposition home or self-care (01) ==
LOC: RADMAMWWP 14:57
PROVIDERS: ATTEND Internal Medicine
DX: Z12.31 Encounter for screening mammogram for malignant neoplasm of breast (principal); Z13.820 Encounter for screening for osteoporosis; M85.89 Other specified disorders of bone density and structure, multiple sites; Z78.0 Asymptomatic menopausal state; Z80.3 Family history of malignant neoplasm of breast
CPT/HCPCS: 77063; 77067; 77080

== ENCOUNTER → 2023-08-07 | Outpatient (CLI) | payer OTHER ==
[2023-08-07 15:42] LABS: Basophils # (A) 0.05 X 10*3/uL (0.00-0.10); Basophils % (A) 1.1 %; Eosinophils # (A) 0.22 X 10*3/uL (0.04-0.35); Eosinophils % (A) 4.9 %; HCT 42.6 % (37.2-46.3); Lymphocytes # (A) 1.41 X 10*3/uL (0.90-5.00); Lymphocytes % (A) 31.2 %; MCH 28.6 pg (27.0-32.0); MCHC 30.5 g/dL (32.0-37.0); MCV 93.8 FL (80.0-97.0); Mean Platelet Volume 11.8 FL (9.5-12.2); Monocytes # (A) 0.31 X 10*3/uL (0.20-1.00); Monocytes % (A) 6.9 %; NRBC Per 100 WBC 0 X 10*3/uL (0.00-0.01); Neutrophils # (A) 2.52 X 10*3/uL (1.80-7.70); Neutrophils % (A) 55.7 %; Platelet Count 154 X 10*3/uL (140-440); RBC 4.54 X 10*6/uL (4.10-5.20); RDW 13.4 % (11.5-14.5); WBC 4.52 X 10*3/uL (4.50-10.00)
[2023-08-07 16:06] LABS: ALT 26 U/L (8-44); AST 19 U/L (13-35); Albumin 4.7 g/dL (3.8-4.9); Albumin/Globulin Ratio 1.88 Ratio (1.60-3.17); Alkaline Phosphatase 65 U/L (41-126); Blood Urea Nitrogen 22.5 mg/dL (9.0-27.0); Calcium 9.9 mg/dL (8.7-10.3); Carbon Dioxide 24.9 mmol/L (21.6-31.8); Chloride 110 mmol/L (96-109); Chol/HDL Ratio 3.56 Ratio; Globulin 2.5 g/dL (1.6-3.3); Glucose 104 mg/dL (70-110); Potassium 4.5 mmol/L (3.5-5.5); Sodium 148 mmol/L (135-145); Total Bilirubin 0.4 mg/dL (0.3-1.2); Total Protein 7.2 g/dL (6.2-8.2)
== END | disposition home or self-care (01) ==
LOC: LABWHC1 10:43
PROVIDERS: ATTEND Internal Medicine
DX: Z00.00 Encounter for general adult medical examination without abnormal findings (principal); E78.5 Hyperlipidemia, unspecified
CPT/HCPCS: 36415; 80053; 80061; 84443; 85025

== ENCOUNTER → 2024-08-18 | Outpatient (CLI) | payer MEDICAID ==
--- NOTE | 2024-08-18 07:37 | MM ---
Reason for Exam: Screening (asymptomatic). Last screening mammogram was performed 12 month(s) ago. Patient History: Menarche at age 13. First Full-Term at age 28. Postmenopausal. Patient used Hormonal Contraceptives for 8 years. Mother had breast cancer, age 51. Risk Values: Terri 5 year model risk: 3.1%. NCI Lifetime model risk: 12.8%. Prior Study Comparison: 12/11/2020 Bilateral Screening Mammogram, [facility]. 04/22/2022 Bilateral MG screening mammo w CAD, [facility]. 07/29/2023 Bilateral MG 3D screening mammo w/cad, [facility]. Tissue Density: The breasts are heterogeneously dense, which may obscure small masses. Findings: Analyzed By CAD. Right breast: There is no suspicious group of microcalcifications or new suspicious mass. Left breast: There is no suspicious group of microcalcifications or new suspicious mass. Benign-appearing calcifications left breast. Overall Assessment: Benign, BI-RAD 2 Management: Screening Mammogram of both breasts in [address] [facility] will attempt to contact patient to return for supplemental views and ultrasound if indicated. Patient should continue monthly self-breast exams. A clinical breast exam by your physician is recommended on an annual basis. This exam should not preclude additional follow-up of suspicious palpable abnormalities. Note on Terri scores and lifetime risk: 1. A Terri score greater than 3% is considered moderate risk. If this is the case, consider specialist referral to assess eligibility for a risk reducing agent. 2. If overall lifetime risk for the development of breast cancer is 20% or higher, the patient may qualify for future screening with alternating mammogram and breast MRI. [facility], , 08/18/2024 7:34 AM. Electronically signed and approved by: Michael Stallworth DO
== END | disposition home or self-care (01) ==
LOC: RADMAMWWP 06:54
PROVIDERS: ATTEND Internal Medicine
DX: Z12.31 Encounter for screening mammogram for malignant neoplasm of breast (principal); R92.333 Mammographic heterogeneous density, bilateral breasts; Z78.0 Asymptomatic menopausal state; Z80.3 Family history of malignant neoplasm of breast
CPT/HCPCS: 77067